=== PATIENT | female | born 1990 | race Caucasian/White ===

== ENCOUNTER 2024-04-05 09:20 | Emergency (ER) | payer OTHER | END 2024-04-05 13:25 | disposition home or self-care (01) | LOC: ERS 09:20 | DX: E86.0 Dehydration (principal); R11.2 Nausea with vomiting, unspecified; F17.290 Nicotine dependence, other tobacco product, uncomplicated | CPT/HCPCS: 36415; 80053; 81001; 81025; 85025; 96361; 96374; 96375; J1200; J2765; J2930 ==